=== PATIENT | male | born 1945 | race Caucasian/White ===

== ENCOUNTER 2021-07-27 02:03 | Emergency (ER) | payer MEDICARE ==
[~2021-07-27] VITALS: Ht 180.3 cm; Wt 90.7 kg
[2021-07-27] MEDS ORDERED: ACETAMINOPHEN 325 MG TAB PO ONE (02:15)
[2021-07-27] MEDS ORDERED: MORPHINE SULFATE 5 MG/ML VIAL IM ONE (03:30)
[2021-07-27] MEDS ORDERED: MORPHINE SULFATE INJ 4 MG/ML INJ 1ML ONE (03:40)
[2021-07-27] MEDS ORDERED: MORPHINE SULFATE INJ 4 MG/ML INJ 1ML IV ONE (03:45)
== END 2021-07-27 06:24 | disposition home or self-care (01) ==
LOC: ER 02:37
DX: S00.83XA Contusion of other part of head, initial encounter (principal); M25.521 Pain in right elbow; M25.561 Pain in right knee; W18.30XA Fall on same level, unspecified, initial encounter; Y93.01 Activity, walking, marching and hiking; I10 Essential (primary) hypertension
CPT/HCPCS: 70450; 73080; 73562; 74176; 93005; 99284; J2270